=== PATIENT | male | born 1955 | race Caucasian/White ===

== ENCOUNTER → 2016-11-10 | Outpatient (CLI) | payer OTHER ==
[~2016-11-10] MED LIST: ACET-2267 PO; ETOD400T PO
--- NOTE | 2016-11-10 12:35 | Diagnostic Imaging Report ---
PROCEDURE: MRI lumbar spine. TECHNIQUE: Multiplanar, multisequence MRI of the lumbar spine was performed without contrast. INDICATION: Posterior left leg pain, no known discrete injury. While I have no previous for direct comparison, the study is interpreted in correlation with abdominopelvic CT taken 12/25/2015. FINDINGS: T2 hyperintense nodule partially visualized in upper pole right kidney medially measures 2 cm unchanged when correlated with previous CT which showed features most suggestive of cyst. No new paravertebral mass, hemorrhage or fluid collection. The visualized aorta is nonaneurysmal. The conus appeared normal. There is no intrathecal abnormality. Reconstruction views revealed the lumbar vertebral alignment to be within normal limits. No defect to the pedicles or pars. No acute or chronic fracture found. 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 When the differing modalities taken into account, the appearance not convincingly changed from the prior CT. T12-L1: Mild loss of disc stature and slight circumferential bulge was without focal herniation and resulted in no spinal stenosis. L1-L2: Osteophyte disc material is predominantly oriented anteriorly at this level and results in no convincing stenosis to the canal, neuroforamen or lateral recesses. L2-L3: There is thickening of the ligamenta flava and facet arthrosis. Disc bulge slightly asymmetric to the right indenting the ventral thecal sac. There is some prominence of the dorsal epidural fat. The consolation of findings resulted in a mild to moderate severity of stenosis of the sac at this disc space level. Neuroforamina are widely patent. L3-L4: There is thickened ligamenta flava, facet arthrosis, disc bulge and endplate osteophytes resulting in mild to moderate canal stenosis with mild right greater than left neuroforaminal narrowing. L4-L5: Buckled thickened ligamenta flava and facet arthrosis are a predominant contribution of at least moderate severity of central canal stenosis. Bulging disc material moderately narrows the neuroforamina bilaterally. L5-S1: Endplate osteophytes, desiccated bulging disc material, buckled thickened ligamenta flava and hypertrophic facets conspire to result in mild to moderate canal stenosis with mild left and mild to moderate right foraminal narrowing. IMPRESSION: 1. Degenerative changes to the discs, endplates and posterior elements throughout the lumbar spine result in multilevel canal and foraminal stenoses of varying severities listed level by level above. 2. No fracture or acute-appearing bony abnormality, however. Dictated by: Dictated on workstation # [id number]
== END ==
LOC: RAD 11:40
PROVIDERS: ATTEND Family Medicine
DX: M54.42 Lumbago with sciatica, left side (principal)
CPT/HCPCS: 72148

== ENCOUNTER → 2016-12-22 | Outpatient (CLI) | payer OTHER ==
--- OUTSIDE RECORDS SUMMARY | 2016-12-22 14:51 | XMS REPORT | Continuity of Care Document ---
Author Author [facility] Organization [facility] Address Unknown Phone Unavailable Allergies Active Description Code Type Severity Reaction Onset Reported/Identified Relationship to Patient Clinical Status Yes No Known Drug Allergies [id number] Drug Allergy Unknown N/ A 12/24/2015 Medications Problems Date Dx Coded Attending Type Code Diagnosis Diagnosed By 09/06/2013 YAMILE MONTES DO, Ot V43.65 KNEE JOINT REPLACEMENT STATUS 09/06/2013 YAMILE MONTES DO Ot V54.81 AFTERCARE FOLLOWING JOINT REPLACEMENT 09/06/2013 YAMILE MONTES DO Ot V57.1 PHYSICAL THERAPY NEC 05/14/2015 JOS NOVA MD R Ot 719.45 05/19/2015 ROHINI LAW JOS R Ot 719.45 06/09/2015 JOS NOVA MD R Ot 719.45 11/14/2015 JOS NOVA MD R Ot 719.45 12/28/2015 ROHINI LAW, JOS R Ot E86.0 DEHYDRATION 12/28/2015 JOS NOVA MD R Ot K21.9 GASTRO-ESOPHAGEAL REFLUX DISEASE WITHOUT 12/28/2015 JOS NOVA MD R Ot K52.9 12/28/2015 JOS NOVA MD R Ot K56.60 UNSPECIFIED INTESTINAL OBSTRUCTION 12/28/2015 ROHINI LAW JOS R Ot K56.7 12/28/2015 JOS NOVA MD R Ot R53.1 WEAKNESS 12/28/2015 JOS NOVA MD R Ot R74.8 ABNORMAL LEVELS OF OTHER SERUM ENZYMES 01/13/2016 JOS NOVA MD R Ot E86.0 01/13/2016 JOS NOVA MD R Ot K21.9 01/13/2016 JOS NOVA MD R Ot K52.9 01/13/2016 JOS NOVA MD R Ot K56.7 01/13/2016 JOS NOVA MD R Ot R74.8 03/02/2016 ROHINI LAW, JOS R Ot 719.45 JOINT PAIN-PELVIS 09/14/2016 ROHINI LAW, JOS R Ot 719.45 JOINT PAIN-PELVIS 10/27/2016 Ot 738.19 OTHER SPECIFIED ACQUIRED DEFORMITY OF HE 10/27/2016 Ot 784.0 HEADACHE 10/27/2016 Ot 738.19 OTHER SPECIFIED ACQUIRED DEFORMITY OF HE 10/27/2016 Ot 738.19 OTHER SPECIFIED ACQUIRED DEFORMITY OF HE 10/27/2016 SIMON DO, YAMILE F Ot 717.5 DERANGEMENT MENISCUS NEC 10/27/2016 SIMON DO, YAMILE F Ot V58.61 ANTICOAGULANTS,LT,CURRENT USE 10/27/2016 SIMON DO, YAMILE F Ot V58.83 ENCOUNTER FOR THERAPEUTIC DRUG MONITORIN 10/27/2016 SIMON DO, YAMILE F Ot V58.61 ANTICOAGULANTS,LT,CURRENT USE 10/27/2016 SIMON DO, YAMILE F Ot V58.83 ENCOUNTER FOR THERAPEUTIC DRUG MONITORIN 10/27/2016 SIMON DO, YAMILE F Ot V58.61 ANTICOAGULANTS,LT,CURRENT USE 10/27/2016 SIMON DO, YAMILE F Ot V58.83 ENCOUNTER FOR THERAPEUTIC DRUG MONITORIN 11/10/2016 JOS NOVA MD Ot M54.42 LUMBAGO WITH SCIATICA, LEFT SIDE 11/11/2016 JOS NOVA MD R Ot M54.42 LUMBAGO WITH SCIATICA, LEFT SIDE 11/12/2016 JOS NOVA MD Ot M54.42 LUMBAGO WITH SCIATICA, LEFT SIDE 11/18/2016 JOS NOVA MD R Ot M54.42 LUMBAGO WITH SCIATICA, LEFT SIDE 11/22/2016 JOS NOVA MD R Ot M54.42 LUMBAGO WITH SCIATICA, LEFT SIDE Procedures Results Encounters ACCT No. Visit Date/Time Discharge Status Pt. Type Provider Facility Loc./Unit Complaint [id number] 12/25/2015 19:00:00 2015 11:47:00 DIS Inpatient JOS NOVA MD [facility] 4TH NAUSEA,DIARRHEA,ELEVATED LFT'S [id number] 05/12/2015 10:38:00 2014 23:59:59 CLS Outpatient JSO NOVA MD [facility] RAD PAINFUL HIP ON PELVIS [id number] 08/31/2013 12:56:00 2012 14:38:00 DIS Outpatient SIMON YAMILE RIOS [facility] REHAB S/P LEFT TKR [id number] 07/30/2013 13:00:00 2012 23:59:59 CLS Outpatient YAMILE MONTES DO [facility] ANTICOAG THERAPY [id number] 07/26/2013 13:15:00 2012 23:59:59 CLS Outpatient YAMILE MONTES DO [facility] ANTICOAG THERAPY [id number] 07/23/2013 12:30:00 2012 23:59:59 CLS Outpatient YAMILE MONTES DO [facility] ANTICOAGULANT THERAPY [id number] 02/28/2013 15:24:00 2012 23:59:59 CLS Outpatient YAMILE MONTES DO [facility] RAD MT [id number] 11/10/2016 11:40:00 ACT Outpatient JOS NOVA MD [facility] RAD ACUTE MIDLINE LOW BACK PAIN WITH SCIATICA [id number] 12/24/2015 19:05:00 Document Registration [id number] 10/04/2012 16:26:00 Document Registration [id number] 08/29/2012 12:35:00 Document Registration [id number] 08/17/2012 16:24:00 Document Registration
[2016-12-22 15:17] LABS: MEAN PLATELET VOLUME 11.2 FL (7.4-10.4); RED BLOOD COUNT 5.62 10^6/uL (4.35-5.85); WHITE BLOOD COUNT 5.7 10^3/uL (4.3-11.0)
--- NOTE | 2016-12-22 16:41 | Diagnostic Imaging Report ---
PROCEDURE: MRI pelvis without contrast. TECHNIQUE: Multiplanar, multisequence MRI of the pelvis was performed without contrast. INDICATION: Left posterior thigh muscle pain. FINDINGS: There are no previous MRI examinations available for comparison. The plain film of the abdomen performed on 12/27/2015 failed to show any sign of an acute bony abnormality of the pelvis. There were mild/moderate degenerative changes involving the hip and sacroiliac joints. On this study, there is no abnormal signal arising from the hip joints to suggest bone edema or a fracture. There is no sign of avascular necrosis either. There is a small amount of fluid in each hip joint. Most likely, this is physiologic. There appears to be only moderate degenerative disease of the hip joints. The labrum of the hip joints was not optimally evaluated as intra-articular contrast was not administered. However, there is no obvious labral tear identified. No other bony abnormality is appreciated. There is no signal abnormality arising from the pelvic musculature to suggest edema or inflammation. There is no pelvic mass or free fluid collection identified. IMPRESSION: 1. There is no evidence for an acute bony abnormality, and there is no sign of avascular necrosis of either femoral head. 2. There is only moderate degenerative disease involving the hip joints. There is no obvious labral tear visualized. 3. There is no abnormal signal arising from the pelvic musculature or the intrapelvic contents to suggest an acute abnormality. Dictated by: Dictated on workstation # [id number]
[2016-12-23 13:59] LABS: HLA B27 TISSUE TYPING Negative
--- NOTE | 2016-12-23 15:42 | Diagnostic Imaging Report ---
PROCEDURE: MR imaging left lower extremity without contrast. TECHNIQUE: Multiplanar, multisequence non contrast enhanced MR imaging of the left lower extremity was accomplished. INDICATION: Left leg pain. There are no prior studies available for comparison. FINDINGS: There is no abnormal signal arising from the left femur to suggest bone edema or a fracture. The femur appears to be intact. As noted on the MRI pelvis exam performed in conjunction with this study, there is moderate degenerative disease involving the left hip joint. There is no abnormal signal arising from the musculature to suggest edema or inflammation. There is no mass or hematoma formation either. The subcutaneous fat is unremarkable. IMPRESSION: There is no acute abnormality of the left femur or of the left thigh musculature. Dictated by: Dictated on workstation # [id number]
== END ==
LOC: RAD 14:45
PROVIDERS: ATTEND Orthopaedic Surgery Orthopaedic Surgery of the Spine
DX: Z13.828 Encounter for screening for other musculoskeletal disorder (principal); M54.16 Radiculopathy, lumbar region; M79.605 Pain in left leg
CPT/HCPCS: 36415; 72195; 85027; 85652; 86038; 86141; 86430; 86812

== ENCOUNTER → 2018-07-18 | Outpatient (CLI) | payer OTHER ==
--- NOTE | 2018-07-18 15:48 | Diagnostic Imaging Report ---
PROCEDURE: MRI right joint lower extremity without contrast. TECHNIQUE: Multiplanar, multisequence non contrast-enhanced MRI of the right lower extremity was accomplished. INDICATION: Chronic right knee pain. COMPARISON: No prior studies are available for comparison. FINDINGS: There is a moderate-sized joint effusion. There is severe medial compartmental degenerative change with near complete loss of the joint space and articular cartilage and marginal osteophyte formation. Moderate lateral compartmental and patellofemoral compartmental degenerative change is seen. Marrow signal intensity is unremarkable. No fracture or geographic marrow lesion is seen. The ACL and PCL appear intact. Medial and lateral collateral ligament complexes appear intact. The lateral meniscus appears to be intact although there may be a radial tear involving the mid body of the lateral meniscus. No displaced meniscal fragment is seen. The medial meniscus is markedly abnormal. There is signal throughout the anterior and posterior horn as well as body. This is likely secondary to chronic degeneration. The extensor mechanism is unremarkable. There is a cystic mass posterior to the distal femur and just lateral to midline measuring 17 mm x 11 mm. This may represent a small ganglion. IMPRESSION: Severe degenerative changes of the right knee, in particular the medial and patellofemoral compartments. 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 There is a questionable radial tear of the lateral meniscus. No acute ligamentous injury is seen. There is a moderate knee joint effusion and a small posterior ganglion cyst. Dictated by: Dictated on workstation # [id number]
== END ==
LOC: RAD 12:47
PROVIDERS: ATTEND Orthopaedic Surgery
DX: M17.11 Unilateral primary osteoarthritis, right knee (principal); M67.461 Ganglion, right knee; M23.231 Derangement of other medial meniscus due to old tear or injury, right knee; M22.41 Chondromalacia patellae, right knee
CPT/HCPCS: 73721

== ENCOUNTER → 2020-07-15 | Outpatient (CLI) | payer OTHER | LOC: LABNPT 08:06 | PROVIDERS: ATTEND Family Medicine | DX: Z11.59 Encounter for screening for other viral diseases (principal) | CPT/HCPCS: 87635 ==

== ENCOUNTER → 2022-01-22 | Outpatient (CLI) | payer MEDICARE ==
[~2022-01-22] MED LIST changes: -ETOD400T PO; +ETOD400T3 PO
[2022-01-22 12:21] LABS: MEAN PLATELET VOLUME 10.6 fL (9.0-12.2)
[2022-01-22 12:38] LABS: ALBUMIN 4.2 GM/DL (3.2-4.5); CALCIUM 9.7 MG/DL (8.5-10.1); CREATININE SERUM 0.89 MG/DL (0.60-1.30); POTASSIUM 4.4 MMOL/L (3.6-5.0); TOTAL PROTEIN 7.3 GM/DL (6.4-8.2)
--- NOTE | 2022-01-22 13:30 | Diagnostic Imaging Report ---
PROCEDURE: US right lower extremity venous. TECHNIQUE: Multiple real-time grayscale images were obtained over the right lower extremity in various projections. Additional spectral analysis and color Doppler duplex images were also obtained. INDICATION: Pain. Right lower extremity femoropopliteal deep venous system showed normal color flow, normal waveforms and normal compressibility. No deep vein thrombus and no visualized superficial thrombus. IMPRESSION: Normal negative unilateral right lower extremity venous Doppler and ultrasound exam. Dictated by: Dictated on workstation # [id number]
== END ==
LOC: RAD 11:54
PROVIDERS: ATTEND Nurse Practitioner Family
DX: M79.89 Other specified soft tissue disorders (principal); M79.661 Pain in right lower leg
CPT/HCPCS: 36415; 80053; 85027; 85379; 85652; 86141

== ENCOUNTER → 2022-04-16 | Outpatient (CLI) | payer MEDICARE ==
[~2022-04-16] MED LIST changes: +CATHETER FLUSH 10 ML SYR IV PRN; +HOLD METFORMIN - RECEIVED CONTRAST 20 ML VIAL IV SCH; +IOHEXOL 350 MG/ML 150 ML (OMNIPAQUE 350) VIAL IV ONE; +NS 100 ML (IVPB) BAG IV ONE
[2022-04-16 14:53] LABS: POTASSIUM 4.2 MMOL/L (3.6-5.0)
[2022-04-16 14:55] LABS: CALCIUM 9.2 MG/DL (8.5-10.1)
[2022-04-16 14:58] LABS: BILIRUBIN,TOTAL 0.8 MG/DL (0.1-1.0)
[2022-04-16 15:00] LABS: CREATININE SERUM 0.88 MG/DL (0.60-1.30)
--- NOTE | 2022-04-16 16:27 | Diagnostic Imaging Report ---
EXAMINATION: CT angiography aorta and lower extremity with runoffs. TECHNIQUE: Multiple contiguous axial images were obtained through the abdomen , pelvis and lower extremities after administration of intravenous contrast. 3D MIP reconstructed CTA acquisition were then performed. All CT scans use one or more of the following dose optimizing techniques: automated exposure control, MA and/or KvP adjustment based on a patient size and exam type, or iterative reconstruction. HISTORY: RECURRENT RT LEG EDEMA,RT LEG WOUND COMPARISON: None available. FINDINGS: Vasculature: The abdominal aorta is normal in caliber without aneurysm or dissection. Origin of the celiac, SMA, renal arteries, and HODAN are patent. There are mild vascular calcifications within the common iliac arteries, internal, and external iliac arteries without significant stenosis. The common femoral, superficial femoral, and popliteal arteries are patent as visualized. The anterior tibial and posterior tibial arteries are patent. Bilateral dorsalis pedis arteries are patent. Lung bases: There is atelectasis within the dependent lungs. Solid organs: The liver is normal without focal lesion. There is no biliary ductal dilation. Gallbladder is surgically absent. Pancreas is normal. Spleen is normal. Adrenal glands are normal. There are bilateral renal cysts which require no followup. Bowel: The stomach and small bowel are normal without obstruction. There is scattered colonic diverticulosis. The appendix is normal. Peritoneum: There is no intraperitoneal free fluid or free air. No suspicious lymphadenopathy. Musculoskeletal: Degenerative changes of the spine without suspicious osseous lesion or compression fracture. Small fat-containing periumbilical hernia. There is a fat-containing right inguinal hernia. Surgical changes from left knee arthroplasty. Pelvis: The prostate gland is normal. The urinary bladder is normal. IMPRESSION: 1. No aneurysm, dissection, or stenosis. 2. No acute abnormality in the abdomen or pelvis. Dictated by: Dictated on workstation # [id number]
== END ==
LOC: RAD 14:07
PROVIDERS: ATTEND Nurse Practitioner Family
DX: S81.801D Unspecified open wound, right lower leg, subsequent encounter (principal); I10 Essential (primary) hypertension
CPT/HCPCS: 36415; 75635; 80053

== ENCOUNTER → 2022-12-09 | Outpatient (CLI) | payer MEDICARE ==
[~2022-12-09] MED LIST changes: -CATHETER FLUSH 10 ML SYR IV PRN; -HOLD METFORMIN - RECEIVED CONTRAST 20 ML VIAL IV SCH; -IOHEXOL 350 MG/ML 150 ML (OMNIPAQUE 350) VIAL IV ONE; -NS 100 ML (IVPB) BAG IV ONE
[2022-12-09 11:17] LABS: BASOPHILS % (AUTO) 1 % (0-10); EOSINOPHILS # (AUTO) 0.1 10^3/uL (0.0-0.3); EOSINOPHILS % (AUTO) 2 % (0-10); HEMATOCRIT 52 % (40-54); HEMOGLOBIN 18.2 g/dL (13.3-17.7); LYMPHOCYTES # (AUTO) 1.7 10^3/uL (1.0-4.0); LYMPHOCYTES % (AUTO) 27 % (12-44); MEAN CORPUSCULAR HEMOGLOBIN 32 pg (25-34); MEAN CORPUSCULAR HGB CONC 35 g/dL (32-36); MEAN CORPUSCULAR VOLUME 90 fL (80-99); MONOCYTES # (AUTO) 0.7 10^3/uL (0.0-1.0); MONOCYTES % (AUTO) 11 % (0-12); NEUTROPHILS # (AUTO) 3.8 10^3/uL (1.8-7.8); NEUTROPHILS % (AUTO) 60 % (42-75); PLATELET COUNT 144 10^3/uL (130-400); WHITE BLOOD COUNT 6.4 10^3/uL (4.3-11.0)
[2022-12-09 11:24] LABS: ALBUMIN 4.2 GM/DL (3.2-4.5)
[2022-12-09 11:25] LABS: POTASSIUM 4.1 MMOL/L (3.6-5.0)
[2022-12-09 11:26] LABS: CALCIUM 9.5 MG/DL (8.5-10.1)
[2022-12-09 11:27] LABS: TOTAL PROTEIN 7.5 GM/DL (6.4-8.2)
[2022-12-09 11:29] LABS: BILIRUBIN,TOTAL 0.9 MG/DL (0.1-1.0)
[2022-12-09 11:31] LABS: CREATININE SERUM 0.99 MG/DL (0.60-1.30)
== END ==
LOC: WOUNDCARE 09:10
PROVIDERS: ATTEND Family Medicine
DX: L03.116 Cellulitis of left lower limb (principal); L97.222 Non-pressure chronic ulcer of left calf with fat layer exposed; L97.212 Non-pressure chronic ulcer of right calf with fat layer exposed; I87.333 Chronic venous hypertension (idiopathic) with ulcer and inflammation of bilateral lower extremity; I89.0 Lymphedema, not elsewhere classified; E66.01 Morbid (severe) obesity due to excess calories; Z68.37 Body mass index [BMI] 37.0-37.9, adult
CPT/HCPCS: 11042; 80053; 85025; 87070; 87077; 87205; A6197; G0463; 36415

== ENCOUNTER → 2022-12-10 | Outpatient (CLI) | payer MEDICARE, OTHER | LOC: CARD 10:30 | PROVIDERS: ATTEND Internal Medicine Cardiovascular Disease | DX: I11.9 Hypertensive heart disease without heart failure (principal); I25.10 Atherosclerotic heart disease of native coronary artery without angina pectoris | CPT/HCPCS: 93306 ==

== ENCOUNTER → 2022-12-16 | Outpatient (CLI) | payer MEDICARE, OTHER | LOC: WOUNDCARE 10:57 | PROVIDERS: ATTEND Family Medicine | DX: L97.222 Non-pressure chronic ulcer of left calf with fat layer exposed (principal); L97.212 Non-pressure chronic ulcer of right calf with fat layer exposed; I87.333 Chronic venous hypertension (idiopathic) with ulcer and inflammation of bilateral lower extremity; I89.0 Lymphedema, not elsewhere classified; E66.01 Morbid (severe) obesity due to excess calories; Z68.37 Body mass index [BMI] 37.0-37.9, adult; L03.116 Cellulitis of left lower limb; A49.01 Methicillin susceptible Staphylococcus aureus infection, unspecified site; I96 Gangrene, not elsewhere classified | CPT/HCPCS: 11042; G0463 ==

== ENCOUNTER → 2022-12-20 | Outpatient (CLI) | payer MEDICARE, OTHER | LOC: WOUNDCARE 10:56 | PROVIDERS: ATTEND Family Medicine | DX: I87.333 Chronic venous hypertension (idiopathic) with ulcer and inflammation of bilateral lower extremity (principal); L97.222 Non-pressure chronic ulcer of left calf with fat layer exposed; L97.212 Non-pressure chronic ulcer of right calf with fat layer exposed; I89.0 Lymphedema, not elsewhere classified; E66.01 Morbid (severe) obesity due to excess calories; Z68.37 Body mass index [BMI] 37.0-37.9, adult; L03.116 Cellulitis of left lower limb; A49.01 Methicillin susceptible Staphylococcus aureus infection, unspecified site; I96 Gangrene, not elsewhere classified | CPT/HCPCS: 11042; A6207; A6253; G0463 ==

== ENCOUNTER → 2022-12-23 | Outpatient (CLI) | payer MEDICARE, OTHER | LOC: WOUNDCARE 10:52 | PROVIDERS: ATTEND Family Medicine | DX: I89.0 Lymphedema, not elsewhere classified (principal); L03.116 Cellulitis of left lower limb; L03.115 Cellulitis of right lower limb | CPT/HCPCS: 29581; A6253; G0463 ==

== ENCOUNTER → 2022-12-30 | Outpatient (CLI) | payer MEDICARE, OTHER | LOC: WOUNDCARE 10:44 | PROVIDERS: ATTEND Family Medicine | DX: I89.0 Lymphedema, not elsewhere classified (principal); L03.116 Cellulitis of left lower limb; I25.10 Atherosclerotic heart disease of native coronary artery without angina pectoris; I10 Essential (primary) hypertension | CPT/HCPCS: 29581; A6253; G0463 ==

== ENCOUNTER → 2023-01-06 | Outpatient (CLI) | payer MEDICARE, OTHER | LOC: WOUNDCARE 10:52 | PROVIDERS: ATTEND Family Medicine | DX: I87.333 Chronic venous hypertension (idiopathic) with ulcer and inflammation of bilateral lower extremity (principal); L97.222 Non-pressure chronic ulcer of left calf with fat layer exposed; L97.212 Non-pressure chronic ulcer of right calf with fat layer exposed; I89.0 Lymphedema, not elsewhere classified; E66.01 Morbid (severe) obesity due to excess calories; Z68.37 Body mass index [BMI] 37.0-37.9, adult | CPT/HCPCS: 29581; G0463 ==

== ENCOUNTER → 2023-01-13 | Outpatient (CLI) | payer MEDICARE, OTHER | LOC: WOUNDCARE 10:19 | PROVIDERS: ATTEND Family Medicine | DX: I87.333 Chronic venous hypertension (idiopathic) with ulcer and inflammation of bilateral lower extremity (principal); L97.212 Non-pressure chronic ulcer of right calf with fat layer exposed; L97.222 Non-pressure chronic ulcer of left calf with fat layer exposed; I89.0 Lymphedema, not elsewhere classified; E66.01 Morbid (severe) obesity due to excess calories; Z68.37 Body mass index [BMI] 37.0-37.9, adult | CPT/HCPCS: 99212 ==

== ENCOUNTER → 2023-01-20 | Outpatient (CLI) | payer MEDICARE, OTHER | LOC: WOUNDCARE 08:40 | PROVIDERS: ATTEND Family Medicine | DX: L97.222 Non-pressure chronic ulcer of left calf with fat layer exposed (principal); L97.212 Non-pressure chronic ulcer of right calf with fat layer exposed; I87.333 Chronic venous hypertension (idiopathic) with ulcer and inflammation of bilateral lower extremity; I89.0 Lymphedema, not elsewhere classified; E66.01 Morbid (severe) obesity due to excess calories; Z68.37 Body mass index [BMI] 37.0-37.9, adult; Y82.8 Other medical devices associated with adverse incidents; I96 Gangrene, not elsewhere classified | CPT/HCPCS: 11042; 29581; A6253; G0463 ==

== ENCOUNTER → 2023-01-27 | Outpatient (CLI) | payer MEDICARE, OTHER | LOC: WOUNDCARE 10:27 | PROVIDERS: ATTEND Family Medicine | DX: L97.212 Non-pressure chronic ulcer of right calf with fat layer exposed (principal); L97.222 Non-pressure chronic ulcer of left calf with fat layer exposed; I87.313 Chronic venous hypertension (idiopathic) with ulcer of bilateral lower extremity; I89.0 Lymphedema, not elsewhere classified; E66.01 Morbid (severe) obesity due to excess calories; Z68.37 Body mass index [BMI] 37.0-37.9, adult; Y82.8 Other medical devices associated with adverse incidents; Z22.322 Carrier or suspected carrier of Methicillin resistant Staphylococcus aureus; L03.115 Cellulitis of right lower limb; I96 Gangrene, not elsewhere classified | CPT/HCPCS: 11042; 29581; G0463 ==

== ENCOUNTER → 2023-02-03 | Outpatient (CLI) | payer MEDICARE, OTHER | LOC: WOUNDCARE 10:18 | PROVIDERS: ATTEND Family Medicine | DX: L97.222 Non-pressure chronic ulcer of left calf with fat layer exposed (principal); L97.212 Non-pressure chronic ulcer of right calf with fat layer exposed; I87.333 Chronic venous hypertension (idiopathic) with ulcer and inflammation of bilateral lower extremity; I89.0 Lymphedema, not elsewhere classified; E66.01 Morbid (severe) obesity due to excess calories; Y82.8 Other medical devices associated with adverse incidents; A49.01 Methicillin susceptible Staphylococcus aureus infection, unspecified site; L03.115 Cellulitis of right lower limb; Z68.37 Body mass index [BMI] 37.0-37.9, adult | CPT/HCPCS: 29581; G0463 ==

== ENCOUNTER → 2023-02-10 | Outpatient (CLI) | payer MEDICARE, OTHER | LOC: WOUNDCARE 10:18 | PROVIDERS: ATTEND Family Medicine | DX: L97.222 Non-pressure chronic ulcer of left calf with fat layer exposed (principal); I87.333 Chronic venous hypertension (idiopathic) with ulcer and inflammation of bilateral lower extremity; I89.0 Lymphedema, not elsewhere classified; E66.01 Morbid (severe) obesity due to excess calories; Z68.37 Body mass index [BMI] 37.0-37.9, adult; Y82.8 Other medical devices associated with adverse incidents; B37.2 Candidiasis of skin and nail | CPT/HCPCS: 29581; G0463 ==

== ENCOUNTER → 2023-02-17 | Outpatient (CLI) | payer MEDICARE, OTHER | LOC: WOUNDCARE 10:22 | PROVIDERS: ATTEND Family Medicine | DX: I87.333 Chronic venous hypertension (idiopathic) with ulcer and inflammation of bilateral lower extremity (principal); L97.222 Non-pressure chronic ulcer of left calf with fat layer exposed; I89.0 Lymphedema, not elsewhere classified; E66.01 Morbid (severe) obesity due to excess calories; Y82.8 Other medical devices associated with adverse incidents; Z68.37 Body mass index [BMI] 37.0-37.9, adult | CPT/HCPCS: 99212 ==

== ENCOUNTER → 2023-03-09 | Outpatient (CLI) | payer MEDICARE, OTHER ==
--- NOTE | 2023-03-09 11:18 | Diagnostic Imaging Report ---
PROCEDURE: US left lower extremity venous. TECHNIQUE: Multiple Real-time grayscale images were obtained over the left lower extremity in various projections. Additional duplex Doppler and color Doppler images were also obtained. INDICATION: Pain. FINDINGS: The left lower extremity venous system shows normal color flow, compressibility, and normal waveforms with no thrombus identified. IMPRESSION: Normal negative left lower extremity venous Doppler and ultrasound exam. Dictated by: Dictated on workstation # [id number]
== END ==
LOC: RAD 10:15
PROVIDERS: ATTEND Family Medicine
DX: I87.333 Chronic venous hypertension (idiopathic) with ulcer and inflammation of bilateral lower extremity (principal); L97.222 Non-pressure chronic ulcer of left calf with fat layer exposed; I89.0 Lymphedema, not elsewhere classified; E66.01 Morbid (severe) obesity due to excess calories; R73.9 Hyperglycemia, unspecified; Y82.8 Other medical devices associated with adverse incidents; Z68.37 Body mass index [BMI] 37.0-37.9, adult

== ENCOUNTER → 2023-03-09 | Outpatient (CLI) | payer MEDICARE, OTHER ==
[2023-03-09 10:17] LABS: BASOPHILS % (AUTO) 1 % (0-10); EOSINOPHILS # (AUTO) 0.1 10^3/uL (0.0-0.3); EOSINOPHILS % (AUTO) 2 % (0-10); HEMATOCRIT 48 % (40-54); HEMOGLOBIN 16.7 g/dL (13.3-17.7); LYMPHOCYTES # (AUTO) 1.3 10^3/uL (1.0-4.0); LYMPHOCYTES % (AUTO) 25 % (12-44); MEAN CORPUSCULAR HEMOGLOBIN 32 pg (25-34); MEAN CORPUSCULAR HGB CONC 35 g/dL (32-36); MEAN CORPUSCULAR VOLUME 90 fL (80-99); MEAN PLATELET VOLUME 10.4 fL (9.0-12.2); MONOCYTES # (AUTO) 0.6 10^3/uL (0.0-1.0); MONOCYTES % (AUTO) 11 % (0-12); NEUTROPHILS # (AUTO) 3.2 10^3/uL (1.8-7.8); NEUTROPHILS % (AUTO) 61 % (42-75); PLATELET COUNT 144 10^3/uL (130-400); WHITE BLOOD COUNT 5.3 10^3/uL (4.3-11.0)
[2023-03-09 10:32] LABS: ALBUMIN 3.9 GM/DL (3.2-4.5); BILIRUBIN,TOTAL 0.7 MG/DL (0.1-1.0); CALCIUM 9.3 MG/DL (8.5-10.1); CREATININE SERUM 1.02 MG/DL (0.60-1.30); POTASSIUM 4.6 MMOL/L (3.6-5.0); TOTAL PROTEIN 6.6 GM/DL (6.4-8.2)
== END ==
LOC: WOUNDCARE 09:24
PROVIDERS: ATTEND Family Medicine
DX: I87.333 Chronic venous hypertension (idiopathic) with ulcer and inflammation of bilateral lower extremity (principal); L97.222 Non-pressure chronic ulcer of left calf with fat layer exposed; I89.0 Lymphedema, not elsewhere classified; E66.01 Morbid (severe) obesity due to excess calories; Z68.37 Body mass index [BMI] 37.0-37.9, adult; Y82.8 Other medical devices associated with adverse incidents
CPT/HCPCS: 11042; 80053; 83036; 85025; 87070; 87077; 87186; 87205; A6197; G0463; 36415

== ENCOUNTER → 2023-03-16 | Outpatient (CLI) | payer MEDICARE, OTHER | LOC: WOUNDCARE 13:24 | PROVIDERS: ATTEND Family Medicine | DX: L97.222 Non-pressure chronic ulcer of left calf with fat layer exposed (principal); I87.333 Chronic venous hypertension (idiopathic) with ulcer and inflammation of bilateral lower extremity; I89.0 Lymphedema, not elsewhere classified; E66.01 Morbid (severe) obesity due to excess calories; Z68.37 Body mass index [BMI] 37.0-37.9, adult; I96 Gangrene, not elsewhere classified; Y82.8 Other medical devices associated with adverse incidents | CPT/HCPCS: 11042; A6456; G0463 ==

== ENCOUNTER → 2023-03-21 | Outpatient (CLI) | payer MEDICARE, OTHER | LOC: WOUNDCARE 12:43 | PROVIDERS: ATTEND Family Medicine | DX: S81.802A Unspecified open wound, left lower leg, initial encounter (principal); I10 Essential (primary) hypertension; I25.10 Atherosclerotic heart disease of native coronary artery without angina pectoris | CPT/HCPCS: 29580; A6454; A6456; G0463 ==

== ENCOUNTER → 2023-03-24 | Outpatient (CLI) | payer MEDICARE, OTHER | LOC: WOUNDCARE 13:46 | PROVIDERS: ATTEND Family Medicine | DX: L97.222 Non-pressure chronic ulcer of left calf with fat layer exposed (principal); I87.333 Chronic venous hypertension (idiopathic) with ulcer and inflammation of bilateral lower extremity; I89.0 Lymphedema, not elsewhere classified; E66.01 Morbid (severe) obesity due to excess calories; Z68.37 Body mass index [BMI] 37.0-37.9, adult; Y82.8 Other medical devices associated with adverse incidents; I96 Gangrene, not elsewhere classified | CPT/HCPCS: 29580; A6454; A6456; G0463; 99212 ==

== ENCOUNTER → 2023-03-30 | Outpatient (CLI) | payer MEDICARE, OTHER | LOC: WOUNDCARE 12:52 | PROVIDERS: ATTEND Family Medicine | DX: L03.116 Cellulitis of left lower limb (principal); I89.0 Lymphedema, not elsewhere classified; I25.10 Atherosclerotic heart disease of native coronary artery without angina pectoris; I10 Essential (primary) hypertension | CPT/HCPCS: 99212 ==